=== PATIENT | male | born 1960 ===

== ENCOUNTER 2024-06-17 06:18 | Day surgery (SDC) | payer OTHER ==
[2024-06-17] VITALS (13 sets, daily range): BP systolic 101–162; BP diastolic 57–86
[~2024-06-17] VITALS: Ht 185.4 cm; Wt 104.0 kg
[~2024-06-17 06:18] MED LIST: ATOR10 PO; Acetaminophen 500 MG Tab PO SCH; Bupivacaine 0.5% HCl 5 MG/ML 30MLVIAL ONE; CALCIUM PO; CeFAZolin Sodium 2,000 MG in NS 100 ML IV SCH; Chlorhexidine Mouth Care 15 ML UDC MT SCH; Dexamethasone Sod Phos 10 MG/ML 1ML VIAL ONE; FentaNYL Citrate 50 MCG/ML 2 ML Injection ONE; IBUP200 PO; Lactated Ringer's 1,000 ML IV SCH; Naproxen375 MG PO; OxyCODONE HCL 10 MG TABCR PO SCH; Prinivil10 MG PO; Ropivacaine 0.5% HCl/Pf 123.125 MG,EPINEPHrine HCL 0.25 MG,Ketorolac Tromethamine 15 MG... INFIL SCH; TOCO1000 PO; TYLENOL ARTHRITIS PO; Tranexamic Acid 100 ML IV SCH; propofoL 40 ML IV ONE
[2024-06-17] MEDS ORDERED: FISH OIL 1,0001 EA10 PO (06:30)
--- NOTE | 2024-06-17 07:00 | NUR ---
Ambulatory in Day Surgery. REPORTS 710 RIGHT HIP PAIN. History, Chart, Medications and Allergies reviewed before start of procedure.Lungs clear T/O to Auscultation. Patient confirms NPO status and agrees with scheduled surgery. Patient reports completing Chlorhexadine shower X2 prior to admission to hospital.Surgical site prepped with 2% Chlorhexidine cloth wipe.
--- NOTE | 2024-06-17 07:28 | NUR ---
PT GLASSES GIVEN TO HIS MARCE. HIS CLOTHING ARE IN BELONGINGS BAG BELOW THE BED.
[2024-06-17] MEDS ORDERED: Promethazine HCl 25 MG Tab PO PRN (07:50)
[2024-06-17] MEDS ORDERED: Prochlorperazine Edisylate 10 mg Vial IV PRN (07:50)
[2024-06-17] MEDS ORDERED: Ondansetron HCl 2 MG / ML 2ML Vial IV PRN (07:50)
[2024-06-17] MEDS ORDERED: Magnesium Hydroxide Conc 10 ML UDC PO PRN (07:55)
[2024-06-17] MEDS ORDERED: Lactated Ringer's 1,000 ML IV SCH (07:55)
[2024-06-17] MEDS ORDERED: DiphenhydrAMINE HCL 25 MG Cap PO PRN (07:55)
[2024-06-17] MEDS ORDERED: OxyCODONE HCL 5 MG TAB PO PRN ×2 (07:55)
[2024-06-17] MEDS ORDERED: Metoclopramide HCl 5MG / ML 2ML Vial IV PRN (07:55)
[2024-06-17] MEDS ORDERED: FLU VACC TS2024-25(6MOS UP)/PF 45 MCG/0.5 ML SYRINGE IM SCH (07:55)
[2024-06-17] MEDS ORDERED: Bisacodyl 10 MG Supp PR PRN (08:00)
[2024-06-17] MEDS ORDERED: Acetaminophen 500 MG Tab PO SCH (08:00)
[2024-06-17] MEDS ORDERED: HYDROmorphone HCl/Pf 1MG SYR IV PRN (08:00)
[2024-06-17] MEDS ORDERED: propofoL 20 ML IV ONE ×3 (08:12→08:29)
[2024-06-17] MEDS ORDERED: Docusate Sodium 100 MG Cap PO SCH (09:00)
[2024-06-17] MEDS ORDERED: Glycopyrrolate 0.2 MG/ML 5ML VIAL ONE (11:26)
[2024-06-17] MEDS ORDERED: Ketorolac Tromethamine 15mg Vial IV SCH (12:00)
[2024-06-17] MEDS ORDERED: ACET500 PO (15:39)
[2024-06-17] MEDS ORDERED: ASPI81CH PO (15:40)
[2024-06-17] MEDS ORDERED: SULTRIDS PO (15:40)
[2024-06-17] MEDS ORDERED: OXYC5 PO (15:42)
[2024-06-17] MEDS ORDERED: CeFAZolin Sodium 2,000 MG in NS 100 ML IV SCH (16:00)
--- NOTE | 2024-06-17 17:01 | NUR ---
DISCHARGE PT HAS CLEARED THERAPY. PAIN WELL CONTROLLED. EATING, DRINKING, & VOIDING WELL. POLAR PACK SENT w/ PT. ESCORTED OUT VIA W/C.
[2024-06-17] MEDS ORDERED: Lisinopril 20 MG Tab PO SCH (18:00)
[2024-06-18] MEDS ORDERED: Aspirin 81 MG Chew PO SCH (09:00)
== END 2024-06-17 17:00 | disposition home or self-care (01) ==
LOC: ORSCMMR 06:18 → ORD 07:30 → SURS 09:57 → ORSCMMR 17:00
PROVIDERS: Orthopaedic Surgery
PROC: 0SR90JA Replacement of Right Hip Joint with Synthetic Substitute, Uncemented, Open Approach (ICD-10-PCS; principal; 2024-06-17 07:30)
DX: M16.11 Unilateral primary osteoarthritis, right hip (principal); I10 Essential (primary) hypertension; E78.5 Hyperlipidemia, unspecified; Z79.899 Other long term (current) drug therapy
CPT/HCPCS: 72170; 97110; 97116; 97161; 97530; A9270; C1776; J0171; J0690; J0735; J1100; J1885; J2704; J2795; J3010; J7120